=== PATIENT | male | born 1965 | race Caucasian/White ===

== ENCOUNTER → 2025-08-31 06:51 | Outpatient (REF) | payer BC, SELFPAY | LOC: MRI 3T 06:51 | PROVIDERS: ATTENDING PHYSICIAN Student in an Organized Health Care Education/Training Program; FAMILY PHYSICIAN Family Medicine | DX: M25.562 Pain in left knee (principal); M22.42 Chondromalacia patellae, left knee; M76.892 Other specified enthesopathies of left lower limb, excluding foot; M17.12 Unilateral primary osteoarthritis, left knee | CPT/HCPCS: 73721 ==